=== PATIENT | male | born 1935 | race Hispanic/Latino ===

== ENCOUNTER 2018-06-29 07:22 | Day surgery (SDC) | payer MEDICARE ==
[2018-06-26 13:54] LABS: BASOPHILS % (AUTO) 0.8 % (0.0-5.0); EOSINOPHILS % (AUTO) 11.9 % (0.0-8.0); HEMATOCRIT 38.4 % (42-54); LYMPHOCYTES % (AUTO) 14.6 % (21.0-51.0); MEAN CORPUSCULAR HEMOGLOBIN 29.3 pg (27.0-33.0); MEAN CORPUSCULAR HGB CONC 32.9 g/dL (32.0-36.0); MEAN CORPUSCULAR VOLUME 88.9 fL (79-99); MONOCYTES % (AUTO) 10.3 % (3.0-13.0); NEUTROPHILS % (AUTO) 62.4 % (40.0-77.0); PLATELET COUNT (AUTO) 357 K/uL (130-400); RED BLOOD CELL COUNT(AUTO) 4.31 MIL/uL (4.50-6.20); RED CELL DISTRIBUTION WIDTH 14.7 % (11.0-15.5); WHITE BLOOD COUNT (AUTO) 6.1 K/uL (4.8-10.8)
[2018-06-26 14:09] LABS: CREATININE 0.5 mg/dL (0.5-1.5); INR 0.99 (0.85-1.15); PARTIAL THROMBOPLASTIN TIME 31.3 SEC (26.3-35.5); POTASSIUM 5.4 mmol/L (3.5-5.1); PROTHROMBIN TIME 10.4 SEC (9.6-11.6)
[2018-06-26 15:14] VITALS: BP 119/60
[2018-06-26 15:14] LABS: APPEARANCE,URINE TURBID (CLEAR); BILIRUBIN,URINE NEGATIVE (NEGATIVE); COLOR,URINE YELLOW (YELLOW); GLUCOSE, URINE (UA) NEGATIVE (NEGATIVE); KETONES,URINE NEGATIVE (NEGATIVE); LEUKOCYTE ESTERASE ,URINE LARGE (NEGATIVE); NITRATE,URINE POSITIVE (NEGATIVE); OCCULT BLOOD,URINE LARGE (NEGATIVE); PROTEIN,URINE >=300 (NEGATIVE); UROBILINOGEN,URINE 0.2 mg/dL (0.2-1.0)
[2018-06-26 15:34] LABS: WBC,URINE TNTC /HPF (0-1)
[2018-06-26 15:35] LABS: BACTERIA,URINE Moderate /HPF (None Seen); SQUAMOUS EPITHELIAL CELL,UR None Seen /HPF (0-2)
--- NOTE | 2018-06-26 15:50 | NUR ---
NOTIFIED DR. STAPLETON OF ABNORMAL EKG, EKG WAS CLEARED WITH NO NEW ORDERS RECEIVED AT 1615.
--- NOTE | 2018-06-26 16:00 | NUR ---
NURSING: NOTED PT HAS TAPE CASTILLO ON ANTERIOR REGION OF UPPER THIGH, PT DAUGHTER STATED RIVAS WAS SLIPPING DOWN, SHE TAPE THE RIVAS TO THE PT THIGH WITH WHITE TAPE, UPON ASSESSMENT, TAPE WAS APPLIED TIGHTLY AND NOTES SKIN BREAKDOWN WITH BLISTERS. DAUGHTER STATES PT MIGHT BE ALLERGIC TO TAPE. TAPE WAS REMOVED HER IN DAY PT, WOUNDS WERE CLEANED APPLIED BACITRACIN OINTMENT, PT GIVEN NEW LEG BAGS TO CHANGE AT HOME. DAUGHTER STATES PT WAS GIVEN PRESCRIPTION FOR LEVAQUIN ABX AND WILL START TODAY.
--- NOTE | 2018-06-28 14:15 | NUR ---
ABNORMAL LABS BMP,UA,URINE CULTURE, AEROBIC ID & SENSITIVITIES FAXED TO [facility] AT DR. MEJIA'S OFFICE. CALLED OFFICE, SPOKE TO DONTAE, STATED [facility] NOT IN THE OFFICE TODAY, DR. MEJIA IN SURGERY AT THIS TIME IN [facility] AND DOES NOT COME TO OFFICE ON WEDNESDAYS. WILL ATTEMPT TO CONTACT DR. MEJIA.
--- NOTE | 2018-06-28 15:07 | NUR ---
MICHAEL DIGGS FROM DR. MEJIA'S OFFICE CALLED BACK, STATED DR. MEJIA WAS NOTIFIED BY OFFICE OF ABNORMAL LABS AND PER DR. MEJIA, HE WILL CALL HOSPITAL. WAITING INTERIOR WIRER BACK.
--- NOTE | 2018-06-28 17:30 | NUR ---
NOTE NO CALL BACK RECEIVED FROM DR. MEJIA.
[~2018-06-29] VITALS: Ht 142.2 cm; Wt 40.8 kg
[2018-06-29] VITALS (16 sets, daily range): BP systolic 111–137; BP diastolic 54–74
[~2018-06-29 07:22] MED LIST: CEFTRIAXONE SODIUM 1 GM IVP SCH; FINA5TAB41 PO; GENTAMICIN SULFATE 200 MG in SODIUM CHLORIDE 0.9% 100 ML IV SCH; LEVO500T2 PO; SODI1TAB4 PO
[2018-06-29] MEDS ORDERED: LACTATED RINGERS 1000ML 1,000 ML IV ONE (07:45)
[2018-06-29] MEDS ORDERED: FENTANYL CITRATE PF 50 MCG/1 ML 2ML VIAL ONE (07:54)
[2018-06-29] MEDS ORDERED: PROPOFOL 10 MG/ML 20ML VIAL IV ONE (07:54)
[2018-06-29] MEDS ORDERED: LIDOCAINE PF 2% 5ML ABBOJECT ONE (07:54)
[2018-06-29] MEDS ORDERED: IPRATROPIUM/ALBUTEROL SULFATE 3 ML SOLUTION IH ONE (08:25)
[2018-06-29] MEDS ORDERED: IPRATROPIUM/ALBUTEROL SULFATE 3 ML SOLUTION IH SCH (08:30)
[2018-06-29] MEDS ORDERED: SUCCINYLCHOLINE CHLORIDE 20 MG/ML 10 ML VIAL ONE (08:56)
[2018-06-29] MEDS ORDERED: MEPERIDINE-PF 25 MG/ML SYG ONE ×2 (10:40→10:51)
--- NOTE | 2018-06-29 11:30 | NUR ---
POST OP RECEIVED AWAKE ALERT ,NO COMPLAINTS ,IRRIGATION NS TO RIVAS WITH BLOOD TINGE OUTPUT,,,CALL FAROOQ IN REACH,WILL CONTINUE TO MONITOR
--- NOTE | 2018-06-29 11:35 | NUR ---
WITH DRY SCABS TO RT THIGH ,SPOUSE SAID FROM TAPE SHE HAD PUT FROM BEFORE ,AWARE NOT TO PUT ,HARD ON SKIN ,VERBALIZE UNDERSTANDING
--- NOTE | 2018-06-29 12:15 | NUR ---
OUTPUT FROM RIVAS-1800 ML CLEAR BLOOD TINGE OUTPUT Addendum: 06/29/18 at 1430 by STEPAN HE LVN LVN Amended: Links added.
--- NOTE | 2018-06-29 12:30 | NUR ---
DISCHARGE INSTRUCTION VERBALIZE UNDERSTANDING ON RIVAS AND BAG CARE NSTRUCTIONS TO SPOUSE,,VERBALIZE UNDERSTANDING ,STATES AWARE OF HOW TO CHANGE AND EMPTY ,INSTRUCTIONS ON MEDICATION PER MD GIVEN,VERBALIZE UNDERSTANDING .
--- NOTE | 2018-06-29 12:40 | NUR ---
ITCHING PT ITCHY ,NOTICED RT ARM RED ,AND ALSO ITCHY TO LT SHOULDER,NONE ELEVATED ,WILL NOTIFY ANESTHESIA
--- NOTE | 2018-06-29 13:10 | NUR ---
FOLLOW UP [facility]ONEC[employer] IN TO SEE PT ,ORDER GIVEN ,PT STATES NOT MUCH ANY MORE ,SPOUSE AT BEDSIDE ,CALLCAPRI 8IN REACH
[2018-06-29] MEDS ORDERED: PHARMACY COMMUNICATION MISC SCH (13:15)
--- NOTE | 2018-06-29 13:30 | NUR ---
PHARMACY WORKING ON ORDER ,,,,,,,PT STATES NOT ALOT OF ITCHING ,NOTICED HIM SCRATCHING SOME TO RT ARM
--- NOTE | 2018-06-29 13:50 | NUR ---
DIPHENHYDRAMINE TOPICAL APPLIED ,TO ARMS AND CHEST ,,NO OTHER COMPLAINTS
[2018-06-29] MEDS ORDERED: DIPHENHYDRAMINE HCL 2% 30 GM CREAM.GM. TP PRN (14:00)
--- NOTE | 2018-06-29 14:00 | NUR ---
WAITING FOR TRANSPORTATION,PT UP TO CHAIR ,EATING SOME APPLE SAUCE NO COMPLAINTS,SPOUSE AT SIDE
--- NOTE | 2018-06-29 14:10 | NUR ---
STATES ALOT BETTER FROM ITCHING,NOTICED NOT SCRATCHING
--- NOTE | 2018-06-29 14:40 | NUR ---
TO CAR VIA W/C,NO COMPLAINTS OF ITCHING ,REDNESS TO RT ARM SUBSIDED
== END 2018-06-29 14:40 | disposition home or self-care (01) ==
LOC: DAH 07:22
PROVIDERS: ATTEND Urology
DX: N40.1 Benign prostatic hyperplasia with lower urinary tract symptoms (principal); R33.8 Other retention of urine; Z88.0 Allergy status to penicillin; J44.9 Chronic obstructive pulmonary disease, unspecified; E78.5 Hyperlipidemia, unspecified; Z98.890 Other specified postprocedural states; Z79.899 Other long term (current) drug therapy
CPT/HCPCS: 36415; 52648; 71045; 80048; 81001; 85025; 85610; 85730; 87077 ×2; 87088; 87186 ×2; 88305; 93005; 94640; 96365; A4218; A4354; A4358; A4600; C1758; J0696; J1580; J2001; J2175 ×2; J2704; J3010; J7030; J7120; J0330

== ENCOUNTER → 2018-08-31 | Outpatient (CLI) | payer MEDICARE ==
[~2018-08-31] MED LIST changes: -CEFTRIAXONE SODIUM 1 GM IVP SCH; -GENTAMICIN SULFATE 200 MG in SODIUM CHLORIDE 0.9% 100 ML IV SCH
== END | disposition home or self-care (01) ==
LOC: LAB 16:25
PROVIDERS: ATTEND Internal Medicine Gastroenterology
DX: K94.20 Gastrostomy complication, unspecified (principal); M85.88 Other specified disorders of bone density and structure, other site
CPT/HCPCS: 74018

== ENCOUNTER → 2018-09-11 | Outpatient (CLI) | payer MEDICARE | END | disposition home or self-care (01) | LOC: RAH 17:30 | PROVIDERS: ATTEND Internal Medicine Gastroenterology | DX: K94.20 Gastrostomy complication, unspecified (principal) | CPT/HCPCS: 74018 ==

== ENCOUNTER → 2019-02-08 | Outpatient (CLI) | payer MEDICARE ==
[~2019-02-08] MED LIST changes: +DIATR MEGLU/DIATRIZOATE SODIUM 30 ML BOTTLE ONE
== END | disposition home or self-care (01) ==
LOC: RAH 10:37
PROVIDERS: ATTEND Internal Medicine Gastroenterology
DX: K94.20 Gastrostomy complication, unspecified (principal)
CPT/HCPCS: 74018; Q9963

== ENCOUNTER → 2019-07-17 | Outpatient (CLI) | payer MEDICARE | END | disposition home or self-care (01) | LOC: OIH 08:12 | PROVIDERS: ATTEND Physician Assistant Medical | DX: K94.20 Gastrostomy complication, unspecified (principal); M47.814 Spondylosis without myelopathy or radiculopathy, thoracic region; M24.60 Ankylosis, unspecified joint | CPT/HCPCS: 74018; Q9963 ==

== ENCOUNTER → 2020-01-29 | Outpatient (CLI) | payer OTHER, MEDICARE | END | disposition home or self-care (01) | LOC: RAH 15:52 | PROVIDERS: ATTEND Family Medicine | DX: K94.20 Gastrostomy complication, unspecified (principal) | CPT/HCPCS: 74018; Q9963 ==